=== PATIENT | male | born 1990 | race Caucasian/White ===

== ENCOUNTER 2016-09-08 04:55 | Emergency (ER) | payer SELFPAY ==
[~2016-09-08] VITALS: Ht 182.9 cm; Wt 119.3 kg
[~2016-09-08 04:55] MED LIST: LEVO500T2 PO; NAPR500T3 PO; SULF1TAB35 PO; TRAM-42 PO
[2016-09-08] MEDS ORDERED: NS IV 1000 ML 1,000 ML IV ONE (05:18)
[2016-09-08] MEDS ORDERED: fentaNYL INJECTION 100 MCG/2 ML AMP IVP STA (05:18)
[2016-09-08] MEDS ORDERED: HYDR-3812 (05:20)
[2016-09-08] MEDS ORDERED: stool softner (05:20)
[2016-09-08] MEDS ORDERED: ONDA4TAB11 (05:20)
[2016-09-08 05:30] LABS: BASOPHILS % (AUTO) 0 % (0-10); EOSINOPHILS # (AUTO) 0.3 10^3/uL (0.0-0.3); EOSINOPHILS % (AUTO) 3 % (0-10); LYMPHOCYTES % (AUTO) 19 % (12-44); MEAN CORPUSCULAR HEMOGLOBIN 29 PG (25-34); MEAN CORPUSCULAR HGB CONC 33 G/DL (32-36); MEAN CORPUSCULAR VOLUME 88 FL (80-99); MEAN PLATELET VOLUME 9.7 FL (7.4-10.4); MONOCYTES # (AUTO) 0.8 X 10^3 (0.0-1.0); MONOCYTES % (AUTO) 7 % (0-12); NEUTROPHILS # (AUTO) 7.8 X 10^3 (1.8-7.8); NEUTROPHILS % (AUTO) 71 % (42-75); PLATELET COUNT 358 10^3/uL (130-400); RED BLOOD COUNT 4.57 10^6/uL (4.35-5.85); WHITE BLOOD COUNT 10.9 10^3/uL (4.3-11.0)
[2016-09-08] MEDS ORDERED: IOHEXOL 350 MG/ML 100 ML (OMNIPAQUE 350) VIAL IV ONE (05:45)
[2016-09-08] MEDS ORDERED: NS 100 ML (IVPB) BAG IV ONE (05:45)
[2016-09-08 05:48] LABS: ALANINE AMINOTRANSFERASE 33 U/L (0-55); ALBUMIN 4.1 GM/DL (3.2-4.5); ANION GAP 11 MMOL/L (5-14); ASPARTATE AMINO TRANSFERASE 17 U/L (5-34); BILIRUBIN,TOTAL 0.3 MG/DL (0.1-1.0); BLOOD UREA NITROGEN 18 MG/DL (7-18); BUN/CREATININE RATIO 19 (0-20); CALCIUM 9.6 MG/DL (8.5-10.1); CARBON DIOXIDE 23 MMOL/L (21-32); CHLORIDE 105 MMOL/L (98-107); CREATININE SERUM 0.95 MG/DL (0.60-1.30); GFR ESTIMATED > 60; GLUCOSE 113 MG/DL (70-105); HEMOLYSIS 4 (-100-29); ICTERUS 0.3 (-100-1.9); LIPEMIA 3 (-100-49); POTASSIUM 4.6 MMOL/L (3.6-5.0); SODIUM 139 MMOL/L (135-145); TOTAL PROTEIN 7.8 GM/DL (6.4-8.2)
--- NOTE | 2016-09-08 05:48 | ED Abdominal Pain ---
General Chief Complaint: Abdominal/GI Problems Stated Complaint: POST OP HERNIA SURGERY INJURY Nursing Triage Note: Pt arrives via taxi to ED with c/o abd pain RUQ. Reports had a hernia repair 1 week ago in [place]. Numerous laparoscopic sites with steri strips in place. Pt rode in a car 13 hrs and arrived to [place] . Sepsis Screen: No Definite Risk Source of Information: Patient Exam Limitations: No Limitations (JARETH BUITRAGO MD) Source of Information: Patient (IAN PACHECO MD) History of Present Illness Time Seen By Provider: 05:10 Initial Comments Here with report of pain to the right side. He did have hernia repair 1 week ago in [place] and was doing better. This was laparoscopic to the lateral hernia. He is here picking up his children to go back to [place]. He lives in [place]. He has hydrocodone prescribed and has only had to take ibuprofen over the last couple days but has rapidly increased severe right-sided pain today. Last bowel movement yesterday morning. Denies fever or chills. Denies vomiting. Timing/Duration: 4-6 Hours Severity/Quality: Moderate, Severe Location: RUQ, RLQ Radiation: No Radiation Activities at Onset: None Modifying Factors: Worsens With Movement, Improves With Resting Associated Symptoms: No Chest Pain, No Fever/Chills, No Nausea/Vomiting, No Shortness of Air, No Weakness (JARETH BUITRAGO MD) Allergies and Home Medications Allergies Coded Allergies: codeine (Verified Allergy, Unknown, 12/21/15) Home Medications Hydrocodone/Acetaminophen 1 Each Tablet, #30 (Reported) Ondansetron 4 Mg Tab.rapdis, #15 (Reported) [stool softner] , (Reported) Review of Systems Constitutional: see HPI, No chills, No fever EENTM: No Symptoms Reported Respiratory: No Symptoms Reported Cardiovascular: No Symptoms Reported Gastrointestinal: See HPI, Abdominal Pain, Denies Nausea, Denies Vomiting Genitourinary: No Symptoms Reported Musculoskeletal: No back pain, muscle pain Skin: no symptoms reported (JARETH BUITRAGO MD) EENTM: No Blurred Vision Respiratory: Denies Cough Cardiovascular: Denies Chest Pain Gastrointestinal: Denies Abdomen Distended, Abdominal Pain Genitourinary: Burning Skin: No rash Psychiatric/Neurological: No Symptoms Reported Endocrine: No Symptoms Reported Hematologic/Lymphatic: No Symptoms Reported (IAN PACHECO MD) All Other Systems Reviewed Negative Unless Noted: Yes (JARETH BUITRAGO MD) Past Czivvnw-Egcvlx-Lzjfdf Hx Patient Social History Alcohol Use: Occasionally Uses Recreational Drug Use: No Smoking Status: Unknown if Ever Smoked Type Used: Smokeless Tobacco 2nd Hand Smoke Exposure: No Recent Foreign Travel: No Contact w/Someone Who Travel: No Recent Infectious Disease Expo: No Recent Hopitalizations: No (JARETH BUITRAGO MD) Immunizations Up To Date Tetanus Booster (TDap): Unknown (JARETH BUITRAGO MD) Seasonal Allergies Seasonal Allergies: No (JARETH BUITRAGO MD) Surgeries HX Surgeries: Yes (RIGHT HYDROCOELE REPAIR; HERNIA REPAIR X 2) Surgeries: Abdominal (JARETH BUITRAGO MD) Respiratory Hx Respiratory Disorders: No (JARETH BUITRAGO MD) Cardiovascular Hx Cardiac Disorders: No (JARETH BUITRAGO MD) Neurological Hx Neurological Disorders: No (JARETH BUITRAGO MD) Reproductive System Hx Reproductive Disorders: No Sexually Transmitted Disease: No (JARETH BUITRAGO MD) Genitourinary Hx Genitourinary Disorders: No (JARETH BUITRAGO MD) Gastrointestinal Hx Gastrointestinal Disorders: No (JARETH BUITRAGO MD) Musculoskeletal Hx Musculoskeletal Disorders: No (JARETH BUITRAGO MD) Endocrine Hx Endocrine Disorders: No (JARETH BUITRAGO MD) HEENT HX ENT Disorders: No (JARETH BUITRAGO MD) Cancer Hx Cancer: No (JARETH BUITRAGO MD) Psychosocial Hx Psychiatric Problems: No (JARETH BUITRAGO MD) Integumentary HX Skin/Integumentary Disorder: No (JARETH BUITRAGO MD) Blood Transfusions Hx Blood Disorders: No (JARETH BUITRAGO MD) Reviewed Nursing Assessment Reviewed/Agree w Nursing PMH: Yes (JARETH BUITRAGO MD) Reviewed/Agree w Nursing PMH: Yes (IAN PACHECO MD) Family Medical History Significant Family History: No Pertinent Family Hx (JARETH BUITRAGO MD) Physical Exam Vital Signs VS - Last 72 Hours, by Label 09/08/16 09/08/16 05:05 05:42 Temp 97.9 97.9 Pulse 127 Resp 20 B/P (MAP) 168/102 Pulse Ox 96 O2 Delivery Room Air (IAN PACHECO MD) Vital Signs Capillary Refill : Less Than 3 Seconds (JARETH BUITRAGO MD) General Appearance: WD/WN, no apparent distress HEENT: PERRL/EOMI, pharynx normal Neck: full range of motion, supple Respiratory: lungs clear, normal breath sounds Cardiovascular: regular rate, rhythm, no murmur Peripheral Pulses: 2+ Dorsalis Pedis (R), 2+ Left Dors-Pedis (L), 2+ Radial Pulses (R), 2+ Radial Pulses (L) Gastrointestinal: soft, tenderness (moderate tenderness to the right side of the abdomen. Multiple surgical laparoscopic wounds that are clean, dry and intact.) Extremities: non-tender, normal inspection Back: normal inspection, no CVA tenderness, no vertebral tenderness Neurologic/Psychiatric: alert, oriented x 3 Skin: normal color, warm/dry (JARETH BUITRAGO MD) Progress/Results/Core Measures Results/Orders Lab Results Laboratory Tests Test 09/08/16 05:22 09/08/16 07:15 Range/Units White Blood Count 10.9 4.3-11.0 10^3/uL Red Blood Count 4.57 4.35-5.85 10^6/uL Hemoglobin 13.2 L 13.3-17.7 G/DL Hematocrit 40 40-54 % Mean Corpuscular Volume 88 80-99 FL Mean Corpuscular Hemoglobin 29 25-34 PG Mean Corpuscular Hemoglobin Concent 33 32-36 G/DL Red Cell Distribution Width 13.0 10.0-14.5 % Platelet Count 358 130-400 10^3/uL Mean Platelet Volume 9.7 7.4-10.4 FL Neutrophils (%) (Auto) 71 42-75 % Lymphocytes (%) (Auto) 19 12-44 % Monocytes (%) (Auto) 7 0-12 % Eosinophils (%) (Auto) 3 0-10 % Basophils (%) (Auto) 0 0-10 % Neutrophils # (Auto) 7.8 1.8-7.8 X 10^3 Lymphocytes # (Auto) 2.0 1.0-4.0 X 10^3 Monocytes # (Auto) 0.8 0.0-1.0 X 10^3 Eosinophils # (Auto) 0.3 0.0-0.3 10^3/uL Basophils # (Auto) 0.0 0.0-0.1 10^3/uL Sodium Level 139 135-145 MMOL/L Potassium Level 4.6 3.6-5.0 MMOL/L Chloride Level 105 98-107 MMOL/L Carbon Dioxide Level 23 21-32 MMOL/L Anion Gap 11 5-14 MMOL/L Blood Urea Nitrogen 18 7-18 MG/DL Creatinine 0.95 0.60-1.30 MG/DL Estimat Glomerular Filtration Rate > 60 BUN/Creatinine Ratio 19 0-20 Glucose Level 113 H 70-105 MG/DL Calcium Level 9.6 8.5-10.1 MG/DL Total Bilirubin 0.3 0.1-1.0 MG/DL Aspartate Amino Transf (AST/SGOT) 17 5-34 U/L Alanine Aminotransferase (ALT/SGPT) 33 0-55 U/L Alkaline Phosphatase 91 40-136 U/L Total Protein 7.8 6.4-8.2 GM/DL Albumin 4.1 3.2-4.5 GM/DL Urine Color YELLOW Urine Clarity CLEAR Urine pH 5 5-9 Urine Specific [place] 1.015 L 1.016-1.022 Urine Protein NEGATIVE NEGATIVE Urine Glucose (UA) NEGATIVE NEGATIVE Urine Ketones NEGATIVE NEGATIVE Urine Nitrite NEGATIVE NEGATIVE Urine Bilirubin NEGATIVE NEGATIVE Urine Urobilinogen NORMAL NORMAL MG/DL Urine Leukocyte Esterase NEGATIVE NEGATIVE Urine RBC (Auto) NEGATIVE NEGATIVE Urine RBC NONE /HPF Urine WBC NONE /HPF Urine Squamous Epithelial Cells RARE /HPF Urine Crystals NONE /LPF Urine Bacteria NEGATIVE /HPF Urine Casts NONE /LPF Urine Mucus NEGATIVE /LPF Urine Culture Indicated NO (IAN PACHECO MD) My Orders Orders - IAN PACHECO MD Ua Culture If Indicated (09/08/16 06:45) (IAN PACHECO MD) Medications Given in ED Current Medications Medications Dose Ordered Sig/Janae Route Start Time Stop Time Status Last Admin Dose Admin Iohexol 100 ml ONCE ONCE IV 09/08/16 05:45 09/08/16 06:56 DC 09/08/16 05:35 100 ML Sodium Chloride 80 ml ONCE ONCE IV 09/08/16 05:45 09/08/16 06:56 DC 09/08/16 05:35 80 ML Sodium Chloride 1,000 ml @ 0 mls/hr Q0M ONCE IV 09/08/16 05:18 09/08/16 05:20 DC 09/08/16 05:41 999 MLS/HR (IAN PACHECO MD) Vital Signs/I&O Vital Sign - Last 12Hours 09/08/16 09/08/16 05:05 05:42 Temp 97.9 97.9 Pulse 127 Resp 20 B/P (MAP) 168/102 Pulse Ox 96 O2 Delivery Room Air (IAN PACHECO MD) Blood Pressure Mean: 124 Progress Note : Progress Note Seen and evaluated. IV, labs, normal saline 1 L bolus, fentanyl [address] abdomen and pelvis ordered. Monitor patient. (JARETH BUITRAGO MD) Progress Note : Time: 06:54 Progress Note The patient's laboratory evaluation was unremarkable. Because the patient has complained of burning with urination following surgery during which time he had a Rahman catheter placed and obtain urinalysis. I doubt this is the source of the patient's discomfort. Patient's CT of the abdomen and pelvis demonstrated several findings which may bear on his abdominal pain postoperatively. There is a small amount of sludge in the gallbladder. There is evidence of a left inguinal and umbilical hernia. There is a small amount of mesenteric fat versus an intramuscular lipoma in the right lateral pelvic wall. Diverticulosis without evidence of diverticulitis was seen. The patient had received IV narcotic pain medication upon arrival and his pain has returned. I have asked Dr. Cordoba for his thoughts on the patient. Dr. Cordoba evaluating the patient and felt the patient was safe to return to [place] for further evaluation with his surgeon. The disc was prepared of the patient's CT for him to follow up with his surgeon at home. (IAN PACHECO MD) Departure Impression Impression: Primary Impression: Postoperative abdominal pain Disposition: 01 HOME, SELF-CARE Condition: Improved Departure-Patient Inst. Decision time for Depature: 09:25 (IAN PACHECO MD) Referrals: NO,LOCAL PHYSICIAN (PCP) Primary Care Physician Add. Discharge Instructions: Close follow-up with your surgeon at home with CT results. Call or return any time if you have further problems. All discharge instructions reviewed with patient and/or family. Voiced understanding. JARETH BUITRAGO MD Sep 08, 2016 05:48 IAN PACHECO MD Sep 08, 2016 06:57
--- NOTE | 2016-09-08 06:51 | Diagnostic Imaging Report ---
PROCEDURE: CT abdomen and pelvis with contrast. TECHNIQUE: Multiple contiguous axial images were obtained through the abdomen and pelvis after administration of intravenous contrast. INDICATION: Abdominal pain after hernia surgery. FINDINGS: The heart size is normal. The lung bases are clear. The liver is normal in size without focal lesions. The gallbladder is unremarkable. The spleen is normal. The pancreas and adrenal glands are unremarkable. Kidneys are normal. Aorta is nonaneurysmal. The bowel gas pattern is nonspecific. There is a focal fluid collection beneath the right lower anterior abdominal wall. This measures approximately 11 cm AP x 3 cm in depth. There are additional inflammatory changes in the subcutaneous fat of the right lower quadrant. There is a small periumbilical hernia. There is no pelvic mass, adenopathy or free fluid. The osseous structures are unremarkable. IMPRESSION: Loculated fluid collection beneath the anterior abdominal wall of the right lower quadrant. This most likely reflects postop seroma or hematoma although pelvic abscess cannot be entirely excluded. Recommend clinical correlation and if warranted this would be amenable to percutaneous drainage if clinically warranted. Small periumbilical hernia. No other acute abnormality in the abdomen or pelvis Dictated by: Dictated on workstation # [id number]
[2016-09-08 07:23] LABS: BILIRUBIN,URINE NEGATIVE (NEGATIVE); KETONES,URINE NEGATIVE (NEGATIVE); LEUKOCYTE ESTERASE ,URINE NEGATIVE (NEGATIVE); NITRITE,URINE NEGATIVE (NEGATIVE); PH,URINE 5 (5-9); PROTEIN,URINE NEGATIVE (NEGATIVE); UROBILINOGEN,URINE NORMAL (NORMAL)
[2016-09-08 07:35] LABS: SQUAMOUS EPITHELIAL CELL,UR RARE /HPF
[2016-09-08 09:50] VITALS: BP 142/90
--- NOTE | 2016-09-08 10:39 | Consultation ---
History of Present Illness History of Present Illness Patient Consulted On(arturo/time) 09/08/16 10:35 Reason for Visit: pain over the right side of the abdomen. History of Present Illness the specimen underwent laparoscopic repair of ventral hernia along the right side of the abdomen a week ago in [place] and traveled by [employer] to this area, to see this child yesterday. He developed increasing pain over the right side abdomen, prompting an ER visit. CT scan shows postoperative changes with some fluid collection/hematoma. I've asked evaluating prior to discharge from the emergency room Allergies and Home Medications Allergies Coded Allergies: codeine (Verified Allergy, Unknown, 12/21/15) Home Medications Hydrocodone/Acetaminophen 1 Each Tablet, #30 (Reported) Ondansetron 4 Mg Tab.rapdis, #15 (Reported) [stool softner] , (Reported) Past Szhwwfk-Ekbabg-Sfrsrx Hx Patient Social History Alcohol Use: Occasionally Uses Recreational Drug Use: No Smoking Status: Unknown if Ever Smoked Type Used: Smokeless Tobacco 2nd Hand Smoke Exposure: No Recent Foreign Travel: No Contact w/Someone Who Travel: No Recent Infectious Disease Expo: No Recent Hopitalizations: No Immunizations Up To Date Tetanus Booster (TDap): Unknown Seasonal Allergies Seasonal Allergies: No Surgeries HX Surgeries: Yes (RIGHT HYDROCOELE REPAIR; HERNIA REPAIR X 2) Surgeries: Abdominal Respiratory Hx Respiratory Disorders: No Cardiovascular Hx Cardiac Disorders: No Neurological Hx Neurological Disorders: No Reproductive System Hx Reproductive Disorders: No Sexually Transmitted Disease: No Genitourinary Hx Genitourinary Disorders: No Gastrointestinal Hx Gastrointestinal Disorders: No Musculoskeletal Hx Musculoskeletal Disorders: No Endocrine Hx Endocrine Disorders: No HEENT HX ENT Disorders: No Cancer Hx Cancer: No Psychosocial Hx Psychiatric Problems: No Integumentary HX Skin/Integumentary Disorder: No Blood Transfusions Hx Blood Disorders: No Reviewed Nursing Assessment Reviewed/Agree w Nursing PMH: Yes Family Medical History Significant Family History: No Pertinent Family Hx Review of Systems-General Date Seen by Provider: Sep 08, 2016 Time Seen by Provider: 09:11 Constitutional: No diaphoresis, No malaise Cardiovascular: no symptoms reported Gastrointestinal: RLQ, abdominal pain (RLQ) Genitourinary: dysuria Musculoskeletal: no symptoms reported Skin: no symptoms reported Psychiatric/Neurological: No Symptoms Reported Physical Exam-General Problems Physical Exam Vital Signs Vital Sign - Last 12Hours 09/08/16 05:05 Temp 97.9 Pulse 127 Resp 20 B/P (MAP) 168/102 Pulse Ox 96 O2 Delivery Room Air Capillary Refill : Less Than 3 Seconds General Appearance: mild distress HEENT: normal ENT inspection Neck: non-tender Respiratory: lungs clear Cardiovascular: regular rate, rhythm Gastrointestinal: soft Extremities: non-tender Neurologic/Psychiatric: alert, oriented x 3 Skin: warm/dry Comments postoperative changes with a right-sided abdomen. No wound infection. No evidence of peritonitis. CT scan shows a postoperative seroma/hematoma over the right side. Assessment/Plan Assessment/Plan Admission Diagnosis/Plan gentleman with a postoperative seroma and inflammation related to recent surgery. No concern for infection. Reassured and encouraged to follow up with his surgeon in [place]. JACEK SAUNDERS MD Sep 08, 2016 10:39
== END 2016-09-08 09:50 | disposition home or self-care (01) ==
LOC: EDUNIT# 04:55 → ER 05:02
DX: G89.18 Other acute postprocedural pain (principal); R10.11 Right upper quadrant pain; Z98.890 Other specified postprocedural states
CPT/HCPCS: 36415; 74177; 80053; 81000; 85025